=== PATIENT | male | born 1930 | race Caucasian/White ===

== ENCOUNTER 2017-08-03 05:50 | Inpatient (IN) | payer MEDICARE, OTHER ==
[~2017-08-03] VITALS: Ht 177.8 cm; Wt 85.0 kg
[~2017-08-03 05:50] MED LIST: OMEP-110 PO; SIMV10TA3 PO
[2017-08-03] MEDS ORDERED: LACTATED RINGERS 1,000 ML IV SCH (06:10)
[2017-08-03 06:11] VITALS: BP 144/83
[2017-08-03] MEDS ORDERED: EPINEPHRINE 1 MG/ML, 1ML ONE (07:13)
[2017-08-03] MEDS ORDERED: BACITRACIN 50,000 UNIT ONE (07:13)
[2017-08-03] MEDS ORDERED: BUPIVACAINE/PF 0.5% ONE (07:13)
[2017-08-03] MEDS ORDERED: THROMBIN 5,000 UNIT VIAL TP ONE (07:13)
[2017-08-03] MEDS ORDERED: ONDANSETRON 2MG/ML, 2ML ONE (07:34)
[2017-08-03] MEDS ORDERED: FENTANYL PF 100 MCG/2ML ONE ×2 (07:34→09:02)
[2017-08-03] MEDS ORDERED: PROPOFOL 10 MG/ML, 20ML ONE (07:34)
[2017-08-03] MEDS ORDERED: ROCURONIUM 10 MG/ML,10ML ONE (07:34)
[2017-08-03] MEDS ORDERED: CEFAZOLIN 1,000 MG ONE (07:34)
[2017-08-03] MEDS ORDERED: KETAMINE 10 MG/ML, 20ML ONE (07:34)
[2017-08-03] MEDS ORDERED: DEXAMETHASONE 4 MG/ML, 1ML ONE (07:34)
[2017-08-03] MEDS ORDERED: MIDAZOLAM 1 MG/ML, 2ML ONE (07:34)
[2017-08-03] MEDS ORDERED: PHENYLEPHRINE 10 MG/ML ONE (07:34)
[2017-08-03] MEDS ORDERED: ACETAMINOPHEN 650 MG/20.3 ML UDC ONE (09:01)
[2017-08-03] MEDS ORDERED: OXYcodone 5 MG/5 ML ORAL.SOL UDC ONE (09:02)
[2017-08-03] MEDS: FENTANYL PF 100 MCG/2ML IV PRN ×2 (09:05→09:18)
[2017-08-03] MEDS ORDERED: OXYcodone 5 MG/5 ML ORAL.SOL UDC PO PRN (09:30)
[2017-08-03] MEDS ORDERED: PROMETHAZINE 25 MG/ML, 1ML IV PRN (09:30)
[2017-08-03] MEDS ORDERED: ONDANSETRON 2MG/ML, 2ML IVPush PRN (09:30)
[2017-08-03] MEDS ORDERED: MEPERIDINE/PF 25MG/0.5ML IVPush PRN (09:30)
[2017-08-03] MEDS ORDERED: LABETALOL 5MG/ML, 20ML IV PRN (09:30)
[2017-08-03] MEDS ORDERED: hydrALAzine 20 MG/ML, 1ML IV PRN (09:30)
[2017-08-03] MEDS ORDERED: HYDROmorphone 1 MG/ML, 1ML IV PRN (09:30)
[2017-08-03] MEDS ORDERED: ACETAMINOPHEN 325 MG TABLET PO PRN (09:30)
[2017-08-03 10:15] VITALS: BP 134/82
[2017-08-03] MEDS ORDERED: BISACODYL 10 MG SUPP PR PRN (11:30)
[2017-08-03] MEDS ORDERED: ONDANSETRON 2MG/ML, 2ML IV PRN (11:30)
[2017-08-03] MEDS ORDERED: HYDROmorphone 2MG TABLET PO PRN (11:30)
[2017-08-03] MEDS ORDERED: DIPHENHYDRAMINE 50 MG/ML, 1ML IVPush PRN (11:30)
[2017-08-03] MEDS ORDERED: DIPHENHYDRAMINE 50 MG CAPSULE PO PRN (11:30)
[2017-08-03] MEDS ORDERED: PROMETHAZINE 25 MG/ML, 1ML IM PRN (11:30)
[2017-08-03] MEDS ORDERED: MAGNESIUM HYDROXIDE 8%, 30ML UDC PO PRN (11:30)
[2017-08-03] MEDS ORDERED: DIPHENHYDRAMINE 50 MG/ML, 1ML IM PRN (11:30)
[2017-08-03] MEDS ORDERED: METHOCARBAMOL 1,000 MG in DEXTROSE 5% 100 ML IV ONE (11:30)
[2017-08-03] MEDS ORDERED: HYDROcodone/APAP 5/325 TABLET PO PRN (11:30)
[2017-08-03] MEDS: NS + 20MEQ KCL 1,000 ML IV SCH (11:47)
[2017-08-03 13:09] VITALS: BP 117/71
[2017-08-03] MEDS: CEFAZOLIN PMX 1GM/50ML 50 ML IVPB SCH ×2 (16:04→23:20)
[2017-08-03] MEDS: OXYcodone/APAP 5/325MG TABLET PO PRN (18:12)
[2017-08-03] MEDS: METHOCARBAMOL 750 MG in DEXTROSE 5% 100 ML IV SCH (19:42)
[2017-08-03] MEDS ORDERED: SIMVASTATIN 10 MG TABLET PO SCH (21:00)
[2017-08-03 21:08] VITALS: BP 108/60
[2017-08-04 00:51] VITALS: BP 99/54
[2017-08-04] MEDS: NS + 20MEQ KCL 1,000 ML IV SCH (01:57)
[2017-08-04] MEDS: METHOCARBAMOL 750 MG in DEXTROSE 5% 100 ML IV SCH (03:47)
[2017-08-04 04:55] VITALS: BP_SYST 103; BP_SYST 99; BP_DIAS 54; BP_DIAS 61
[2017-08-04] MEDS ORDERED: OMEPRAZOLE 20 MG CAPSULE.DR PO SCH (07:30)
[2017-08-04] MEDS: OXYcodone/APAP 5/325MG TABLET PO PRN (08:26)
[2017-08-04] MEDS ORDERED: OXYC-302 PO (08:27)
[2017-08-04] MEDS ORDERED: TIZA4TAB9 PO (08:27)
[2017-08-04 08:30] VITALS: BP 111/61
[2017-08-04] MEDS ORDERED: SENNA/DOCUSATE TABLET PO SCH (09:00)
[2017-08-05] MEDS ORDERED: METHOCARBAMOL 750 MG TABLET PO SCH (11:30)
== END 2017-08-04 11:22 | disposition home or self-care (01) | DRG 517 ==
LOC: OUT 05:50 → 4NOR 10:33 → OUT 10:41 → DCLOUNGE 08-04 11:03
PROVIDERS: ADMIT Neurological Surgery; ATTEND Neurological Surgery
PROC: 01NR0ZZ Release Sacral Nerve, Open Approach (ICD-10-PCS; 2017-08-03)
PROC: 01NB0ZZ Release Lumbar Nerve, Open Approach (ICD-10-PCS; principal; 2017-08-03 07:30)
DX: M48.061 Spinal stenosis, lumbar region without neurogenic claudication (principal); M47.896 Other spondylosis, lumbar region; M54.16 Radiculopathy, lumbar region
CPT/HCPCS: 72100; J0171; J0690; J1100; J2250; J2405; J2704; J3010; J3480; J3490; J2370; J2800; J7120

== ENCOUNTER → 2018-05-25 | Outpatient (CLI) | payer MEDICARE, OTHER ==
[~2018-05-25] MED LIST changes: +OXYC-302 PO; +TIZA4TAB9 PO
[2018-05-25 09:01] LABS: MICROSCOPIC NOT IND
[2018-05-25 09:03] LABS: BASOPHILS # (AUTO) 0.03 x10^3/uL (0-0.1); BASOPHILS % (AUTO) 1 % (0-1); EOSINOPHILS # (AUTO) 0.06 x10^3/uL (0-0.4); EOSINOPHILS % (AUTO) 1 % (1-7); LYMPHOCYTES # (AUTO) 1.88 x10^3/uL (1-3.4); LYMPHOCYTES % (AUTO) 32 % (22-44); MD NO; MEAN CORPUSCULAR HEMOGLOBIN 31.5 pg (27.5-34.5); MEAN CORPUSCULAR HGB CONC 33.9 g/dL (33.2-36.2); MEAN CORPUSCULAR VOLUME 92.9 fL (81-97); MEAN PLATELET VOLUME 8.3 fL (7.4-10.4); MONOCYTES # (AUTO) 0.33 x10^3/uL (0.2-0.8); MONOCYTES % (AUTO) 6 % (2-9); NEUTROPHILS # (AUTO) 3.55 x10^3/uL (1.8-6.8); NEUTROPHILS % (AUTO) 61 % (42-75); PLATELET COUNT 148 x10^3/uL (130-400); RED BLOOD COUNT 5.25 x10^6/uL (4.38-5.82); RED CELL DISTRIBUTION WIDTH 13.8 % (9.4-14.8)
[2018-05-25 09:04] LABS: CULTURE INDICATED? NO
[2018-05-25 09:11] LABS: INTERNATIONAL NORMALIZED RATIO 0.98 (0.93-1.1); PROTHROMBIN TIME 10.2 Seconds (9.6-11.5)
[2018-05-25 09:12] LABS: ALANINE AMINOTRANSFERASE 26 U/L (12-78); ALBUMIN 4.3 g/dL (3.4-5.0); ANION GAP 7 mmol/L (5-15); CALCIUM 8.6 mg/dL (8.5-10.1); CHLORIDE 108 mmol/L (98-107)
[2018-05-25 09:15] LABS: ALKALINE PHOSPHATASE 81 U/L (45-117); BILIRUBIN,TOTAL 0.7 mg/dL (0.2-1.0); CREATININE 1.19 mg/dL (0.7-1.3); TOTAL PROTEIN 7.3 g/dL (6.4-8.2)
[2018-05-25 09:59] LABS: HEMOGLOBIN A1C 5.4 % (4.2-6.3)
== END | disposition home or self-care (01) ==
LOC: STAR 07:48
PROVIDERS: ATTEND Orthopaedic Surgery
DX: Z01.818 Encounter for other preprocedural examination (principal); M16.12 Unilateral primary osteoarthritis, left hip
CPT/HCPCS: 36415; 80053; 81003; 83036; 85025; 85610; 85730; 87081; 87806; 93005; G0475

== ENCOUNTER 2018-06-05 07:56 | Inpatient (IN) | payer MEDICARE, OTHER ==
[~2018-06-05] VITALS: Ht 177.8 cm; Wt 80.4 kg
[~2018-06-05 07:56] MED LIST changes: +EPINEPHRINE 1 MG/ML, 1ML ONE; +KETOROLAC 60 MG/2 ML ONE; +ROPIvacaine/PF 0.2%, 20 ML ONE; +TRANEXAMIC ACID 100 MG/ML, 10ML ONE
[2018-06-05] MEDS ORDERED: LACTATED RINGERS 1,000 ML IV SCH (08:31)
[2018-06-05 08:48] VITALS: BP 150/76
[2018-06-05] MEDS ORDERED: ACETAMINOPHEN 500 MG TABLET PO ONE (09:00)
[2018-06-05] MEDS ORDERED: FENTANYL PF 250 MCG/5ML ONE (09:00)
[2018-06-05] MEDS ORDERED: GABAPENTIN 300 MG CAPSULE PO ONE (09:00)
[2018-06-05] MEDS ORDERED: PROPOFOL 10 MG/ML, 20ML ONE (09:03)
[2018-06-05] MEDS ORDERED: ROCURONIUM 10MG/ML,5ML ONE (09:04)
[2018-06-05] MEDS ORDERED: SODIUM CHLORIDE 0.9% PF 10ML ONE (09:05)
[2018-06-05] MEDS ORDERED: CEFAZOLIN 1,000 MG ONE ×2 (09:05)
[2018-06-05] MEDS ORDERED: GLYCOPYRROLATE 0.4 MG/2 ML, 2ML ONE ×2 (09:08→12:00)
[2018-06-05] MEDS ORDERED: NEOSTIGMINE 1 MG/ML, 10ML ONE (09:08)
[2018-06-05] MEDS ORDERED: PROMETHAZINE 25 MG/ML, 1ML IM PRN ×3 (09:30→10:30)
[2018-06-05] MEDS ORDERED: OXYcodone 5 MG/5 ML ORAL.SOL UDC PO PRN (09:30)
[2018-06-05] MEDS ORDERED: hydrALAzine 20 MG/ML, 1ML IV PRN (09:30)
[2018-06-05] MEDS ORDERED: HYDROmorphone 1 MG/ML, 1ML IV PRN ×2 (09:30→10:30)
[2018-06-05] MEDS ORDERED: ACETAMINOPHEN 325 MG TABLET PO PRN (09:30)
[2018-06-05] MEDS ORDERED: LABETALOL 5MG/ML, 20ML IV PRN (09:30)
[2018-06-05] MEDS ORDERED: ONDANSETRON ODT 8 MG PO PRN (09:30)
[2018-06-05] MEDS ORDERED: MEPERIDINE/PF 25MG/0.5ML IVPush PRN (09:30)
[2018-06-05] MEDS ORDERED: ONDANSETRON 2MG/ML, 2ML IV PRN ×2 (09:30→10:30)
[2018-06-05] MEDS ORDERED: PROMETHAZINE 25 MG/ML, 1ML IV PRN (09:30)
[2018-06-05] MEDS ORDERED: MORPHINE SULFATE 4 MG/ML, 1ML IVPush PRN (09:30)
[2018-06-05] MEDS ORDERED: PHENYLEPHRINE 10 MG/ML ONE (10:09)
[2018-06-05] MEDS ORDERED: DIPHENHYDRAMINE 25 MG CAPSULE PO PRN (10:30)
[2018-06-05] MEDS ORDERED: ONDANSETRON 4 MG TABLET PO PRN (10:30)
[2018-06-05] MEDS ORDERED: BISACODYL 10 MG SUPP PR PRN (10:30)
[2018-06-05] MEDS ORDERED: ALUMINUM/MAG/SIMETHICONE 30 ML UDC PO PRN (10:30)
[2018-06-05] MEDS ORDERED: MAGNESIUM HYDROXIDE 8%, 30ML UDC PO PRN (10:30)
[2018-06-05] MEDS ORDERED: SENNA/DOCUSATE TABLET PO PRN (10:30)
[2018-06-05] MEDS ORDERED: ACETAMINOPHEN 650 MG/20.3 ML UDC PO PRN (10:30)
[2018-06-05] MEDS ORDERED: PROMETHAZINE 12.5 MG SUPP PR PRN (10:30)
[2018-06-05] MEDS ORDERED: GLYCOPYRROLATE 0.2MG/1ML, 5ML IVPush ONE (12:10)
[2018-06-05] MEDS: FENTANYL PF 100 MCG/2ML IV PRN ×5 (12:15→13:15)
[2018-06-05] MEDS ORDERED: FENTANYL PF 100 MCG/2ML ONE ×2 (12:15→13:04)
[2018-06-05] MEDS ORDERED: MEPERIDINE/PF 50 MG/ML ONE (12:15)
[2018-06-05] MEDS ORDERED: TRANEXAMIC ACID 1,000 MG in SODIUM CHLORIDE 0.9% 100 ML IVPB ONE (12:30)
[2018-06-05] MEDS ORDERED: OXYcodone 5 MG/5 ML ORAL.SOL UDC ONE (12:49)
[2018-06-05 14:15] VITALS: BP 145/80
[2018-06-05] MEDS: CEFAZOLIN PMX 1GM/50ML 50 ML IVPB SCH ×2 (17:55→18:00)
[2018-06-05] MEDS: ASPIRIN 81 MG TABLET EC PO SCH (17:55)
[2018-06-05] MEDS: OXYcodone IR 5MG TABLET PO PRN (18:01)
[2018-06-05] MEDS: D5%-0.45NACL+KCL 20MEQ 1,000 ML IV SCH ×2 (18:42→20:18)
[2018-06-05 20:17] VITALS: BP 109/63
[2018-06-05] MEDS ORDERED: SIMVASTATIN 10 MG TABLET PO SCH (21:00)
[2018-06-05] MEDS: DOCUSATE 100 MG CAPSULE PO SCH (22:34)
[2018-06-06 00:04] VITALS: BP 93/51
[2018-06-06] MEDS: OXYcodone IR 5MG TABLET PO PRN ×4 (01:26→16:03)
[2018-06-06] MEDS ORDERED: HYDROmorphone 2 MG/ML, 1ML ONE (03:43)
[2018-06-06 03:58] VITALS: BP 110/61
[2018-06-06] MEDS ORDERED: DEXAMETHASONE 4 MG/ML, 1ML IVPush SCH (06:00)
[2018-06-06] MEDS: ASPIRIN 81 MG TABLET EC PO SCH (06:24)
[2018-06-06] MEDS: DOCUSATE 100 MG CAPSULE PO SCH (07:20)
[2018-06-06] MEDS ORDERED: OMEPRAZOLE 20 MG CAPSULE.DR PO SCH (07:30)
[2018-06-06 07:48] VITALS: BP 90/54
[2018-06-06] MEDS ORDERED: TAMSULOSIN 0.4 MG CAP.ER.24H PO SCH (09:00)
[2018-06-06] MEDS ORDERED: ASPI-496 PO (11:03)
[2018-06-06] MEDS ORDERED: ONDA4TAB10 PO (11:04)
[2018-06-06] MEDS ORDERED: DOCU-131 PO (11:05)
[2018-06-06] MEDS ORDERED: TRAM50TA2 PO (11:05)
[2018-06-06] MEDS ORDERED: OXYC5CAP2 PO (11:07)
[2018-06-06 12:49] VITALS: BP 99/58
[2018-06-06] MEDS: D5%-0.45NACL+KCL 20MEQ 1,000 ML IV SCH (13:44)
[2018-06-06] MEDS ORDERED: TAMSULOSIN 0.4 MG CAP.ER.24H PO ONE (14:00)
[2018-06-06 15:37] VITALS: BP 113/66
== END 2018-06-06 16:37 | disposition home or self-care (01) | DRG 470 ==
LOC: ORIP 07:56 → EDSTATUS 11:00 → 4NOR 14:11 → DCLOUNGE 06-06 16:10
PROVIDERS: ADMIT Orthopaedic Surgery; ATTEND Orthopaedic Surgery
PROC: 0SRB06Z Replacement of Left Hip Joint with Oxidized Zirconium on Polyethylene Synthetic Substitute, Open Approach (ICD-10-PCS; principal; 2018-06-05 10:00)
DX: M16.12 Unilateral primary osteoarthritis, left hip (principal); G89.29 Other chronic pain; M54.5 Low back pain; Z88.8 Allergy status to other drugs, medicaments and biological substances
CPT/HCPCS: 36415; 72170; 85014; 85018; 86850; 86900; C1713; G0378; J0171; J0690; J1100; J1885; J2704; J2710; J2795; J3010; J3490; Q0162; C1776; J2370; J3480